=== PATIENT | female | born 2000 | race Two or more races ===

== ENCOUNTER 2023-11-20 21:09 | Emergency (ER) | payer OTHER ==
[~2023-11-20] VITALS: Ht 157.5 cm; Wt 56.8 kg
[2023-11-20 21:12] VITALS: BP 120/68; PULSE 88; RESP 18; TEMP 98.3
[2023-11-20] MEDS ORDERED: IBUP-1492 PO (22:43)
== END 2023-11-20 23:03 | disposition home or self-care (01) ==
LOC: EMS 21:09
DX: S63.502A Unspecified sprain of left wrist, initial encounter (principal); X58.XXXA Exposure to other specified factors, initial encounter; Y93.89 Activity, other specified; Y92.89 Other specified places as the place of occurrence of the external cause; Y99.8 Other external cause status
CPT/HCPCS: 99283